=== PATIENT | male | born 1995 | race African-American/Black ===

== ENCOUNTER 2017-06-05 11:10 | Emergency (ER) | payer MEDICAID | END 2017-06-05 12:15 | disposition home or self-care (01) | LOC: E/R 11:10 | DX: H10.022 Other mucopurulent conjunctivitis, left eye (principal); J45.909 Unspecified asthma, uncomplicated | CPT/HCPCS: 99283; Z7502 ==

== ENCOUNTER 2018-02-15 01:02 | Emergency (ER) | payer SELFPAY, MEDICAID ==
[2018-02-15] MEDS: ONDANSETRON (ODT) 4 MG TAB ODT (01:48)
[2018-02-15] MEDS: DEXAMETHASONE 10 MG/ML 1 ML INJ IM (01:48)
[2018-02-15] MEDS: DIPHENHYDRAMINE 50 MG CAP PO (01:48)
[2018-02-15] MEDS: FAMOTIDINE 20 MG TAB PO (01:48)
== END 2018-02-15 02:39 | disposition home or self-care (01) ==
LOC: FTE 01:02
DX: L50.9 Urticaria, unspecified (principal); J45.909 Unspecified asthma, uncomplicated
CPT/HCPCS: 96372; 99284-25